=== PATIENT | male | born 1955 | race Caucasian/White ===

== ENCOUNTER → 2017-04-22 | Outpatient (CLI) | payer MEDICARE ==
[~2017-04-22] MED LIST: CLEOCIN HCL300 MG PO; GLUCOPHAGE 500500 MG PO; IBUPROFEN800 MG PO; LASIX 40 MG TAB40 MG PO; METOPROLOL SUCC50 MG PO; PLAVIX 75 MG TA75 MG PO; PROZAC 20 MG CA20 MG PO; ZANTAC 150 MG150 MG PO; ZESTRIL5 MG PO
== END ==
LOC: HEART 5 07:08
DX: I25.10 Atherosclerotic heart disease of native coronary artery without angina pectoris (principal); I50.9 Heart failure, unspecified
CPT/HCPCS: 78452; A9502; J2785

== ENCOUNTER 2020-11-12 18:40 | Emergency (ER) | payer MEDICARE, OTHER ==
[~2020-11-12 18:40] MED LIST changes: +HYDROCODON-ACE1 EAC4 PO; +NORCO 5-325 TA1 EACH PO; +VIBRAMYCIN100 MG PO
[2020-11-12 19:57] LABS: HEMOGLOBIN 14.1 gm/dl (14.0-17.5); RED BLOOD COUNT 4.78 M/UL (4.20-5.50); WHITE BLOOD COUNT 5.4 K/UL (4.5-11.0)
[2020-11-12 20:17] LABS: BUN/CREATININE RATIO 12 (0-10)
[2020-11-12] MEDS ORDERED: DECADRON6 MG PO (21:58)
[2020-11-12] MEDS ORDERED: DOXYCYCLINE HY100 MG PO (21:58)
== END 2020-11-12 22:25 | disposition home or self-care (01) ==
LOC: ER1 18:40
PROVIDERS: Family Medicine
DX: U07.1 COVID-19 (principal); E11.9 Type 2 diabetes mellitus without complications; F17.220 Nicotine dependence, chewing tobacco, uncomplicated; Z95.1 Presence of aortocoronary bypass graft; Z88.0 Allergy status to penicillin; Z88.1 Allergy status to other antibiotic agents; Z88.6 Allergy status to analgesic agent; Z86.79 Personal history of other diseases of the circulatory system
CPT/HCPCS: 71045; 80053; 82550; 82553; 83615; 83874; 84484; 85025; 86140; 93005; 99285; U0002

== ENCOUNTER → 2021-01-29 | Outpatient (CLI) | payer MEDICARE ==
[~2021-01-29] MED LIST changes: +CRESTOR20 MG PO; +DECADRON6 MG PO; +DOXYCYCLINE HY100 MG PO; +ECOTRIN81 MG PO; +FUROSEMIDE20 MG PO; +NITROGLYCERIN0.4 MG SL; +PROAIR HFA8.5 GM INH; +RANOLAZINE ER500 MG PO; +TOPROL XL50 MG PO
== END ==
LOC: HEART 5 01-23 07:30
DX: I25.10 Atherosclerotic heart disease of native coronary artery without angina pectoris (principal); I47.2 Ventricular tachycardia; R94.39 Abnormal result of other cardiovascular function study
CPT/HCPCS: 78452; A9502; J2785

== ENCOUNTER → 2021-02-05 | Outpatient (CLI) | payer MEDICARE ==
[2021-02-05 11:30] LABS: HEMOGLOBIN 14.1 gm/dl (14.0-17.5); RED BLOOD COUNT 4.84 M/UL (4.20-5.50); WHITE BLOOD COUNT 7.2 K/UL (4.5-11.0)
[2021-02-05 11:45] LABS: BUN/CREATININE RATIO 11 (0-10)
== END ==
LOC: LAB 10:12
PROVIDERS: Internal Medicine Cardiovascular Disease
DX: R94.39 Abnormal result of other cardiovascular function study (principal); I25.118 Atherosclerotic heart disease of native coronary artery with other forms of angina pectoris; I10 Essential (primary) hypertension; I47.2 Ventricular tachycardia; R06.02 Shortness of breath; Z20.822 Contact with and (suspected) exposure to COVID-19
CPT/HCPCS: 71046; 80048; 85025; U0003

== ENCOUNTER 2021-02-07 06:25 | Outpatient (CLI) | payer MEDICARE ==
[~2021-02-07] VITALS: Ht 182.9 cm; Wt 128.9 kg
[~2021-02-07 06:25] MED LIST changes: -CRESTOR20 MG PO; -ECOTRIN81 MG PO; -FUROSEMIDE20 MG PO; -NITROGLYCERIN0.4 MG SL; -PROAIR HFA8.5 GM INH; -RANOLAZINE ER500 MG PO; -TOPROL XL50 MG PO
[2021-02-07] MEDS ORDERED: RANOLAZINE ER500 MG PO (07:24)
[2021-02-07] MEDS ORDERED: FUROSEMIDE20 MG PO (07:25)
[2021-02-07] MEDS ORDERED: GLUCOPHAGE 500500 MG PO (07:25)
[2021-02-07] MEDS ORDERED: ECOTRIN81 MG PO (07:26)
[2021-02-07] MEDS ORDERED: PLAVIX 75 MG TA75 MG PO (07:26)
[2021-02-07] MEDS ORDERED: CRESTOR20 MG PO (07:26)
[2021-02-07] MEDS ORDERED: NITROGLYCERIN0.4 MG SL (07:29)
[2021-02-07] MEDS ORDERED: PROAIR HFA8.5 GM INH (07:30)
[2021-02-07] MEDS ORDERED: TOPROL XL50 MG PO (07:31)
[2021-02-08 03:02] LABS: HEMOGLOBIN 13.2 gm/dl (14.0-17.5); RED BLOOD COUNT 4.52 M/UL (4.20-5.50); WHITE BLOOD COUNT 5.7 K/UL (4.5-11.0)
[2021-02-08 03:39] LABS: BUN/CREATININE RATIO 13 (0-10)
== END 2021-02-08 15:50 | disposition home or self-care (01) ==
LOC: CATH 06:25 → PROG CARE 06:25 → CATH 08:00 → PROG CARE 13:04 → CATH 02-08 15:50
PROVIDERS: Internal Medicine Cardiovascular Disease
DX: I25.119 Atherosclerotic heart disease of native coronary artery with unspecified angina pectoris (principal); I11.0 Hypertensive heart disease with heart failure; I50.9 Heart failure, unspecified; M19.90 Unspecified osteoarthritis, unspecified site; E78.5 Hyperlipidemia, unspecified; E11.9 Type 2 diabetes mellitus without complications; E66.01 Morbid (severe) obesity due to excess calories; Z87.891 Personal history of nicotine dependence; Z95.1 Presence of aortocoronary bypass graft; Z88.0 Allergy status to penicillin; Z88.8 Allergy status to other drugs, medicaments and biological substances; Z79.82 Long term (current) use of aspirin; Z79.84 Long term (current) use of oral hypoglycemic drugs; Z82.49 Family history of ischemic heart disease and other diseases of the circulatory system
CPT/HCPCS: 36415; 80048; 82962; 85025; 85347; 93005; 94760; 99152; 99153; C1725; C1760; C1769; C1874; C1887; C9600; J1644; J2250; J3010; J7030; Q9967

== ENCOUNTER → 2021-05-16 | Outpatient (CLI) | payer MEDICARE ==
[~2021-05-16] MED LIST changes: +CRESTOR20 MG PO; +ECOTRIN81 MG PO; +FUROSEMIDE20 MG PO; +NITROGLYCERIN0.4 MG SL; +PROAIR HFA8.5 GM INH; +RANOLAZINE ER500 MG PO; +TOPROL XL50 MG PO
== END ==
LOC: KOH-I 14:45
DX: M54.5 Low back pain (principal)
CPT/HCPCS: 72100

== ENCOUNTER → 2022-01-07 | Outpatient (CLI) | payer MEDICARE ==
[2022-01-07 08:16] LABS: BUN/CREATININE RATIO 12 (0-10)
== END ==
LOC: LAB 06:33
PROVIDERS: Physician Assistant
DX: I25.119 Atherosclerotic heart disease of native coronary artery with unspecified angina pectoris (principal); E78.5 Hyperlipidemia, unspecified; I25.5 Ischemic cardiomyopathy; I47.2 Ventricular tachycardia; I49.3 Ventricular premature depolarization; I11.0 Hypertensive heart disease with heart failure; I50.22 Chronic systolic (congestive) heart failure; R06.02 Shortness of breath; Z86.718 Personal history of other venous thrombosis and embolism
CPT/HCPCS: 36415; 80053; 80061; 83735; 84439; 84443; 84481; 85379

== ENCOUNTER → 2022-01-10 | Outpatient (CLI) | payer MEDICARE | LOC: CT 15:26 | DX: R79.89 Other specified abnormal findings of blood chemistry (principal); R00.0 Tachycardia, unspecified; Z86.718 Personal history of other venous thrombosis and embolism; R59.0 Localized enlarged lymph nodes | CPT/HCPCS: Q9967 ==

== ENCOUNTER → 2022-01-15 | Outpatient (CLI) | payer MEDICARE | LOC: EXRD 13:00 | DX: R79.89 Other specified abnormal findings of blood chemistry (principal); Z86.718 Personal history of other venous thrombosis and embolism; R60.0 Localized edema | CPT/HCPCS: 93970 ==

== ENCOUNTER → 2022-01-29 | Outpatient (CLI) | payer MEDICARE | LOC: HEART 5 14:25 | DX: R06.02 Shortness of breath (principal); I70.0 Atherosclerosis of aorta; Z95.0 Presence of cardiac pacemaker; I51.7 Cardiomegaly; I51.89 Other ill-defined heart diseases | CPT/HCPCS: 93306 ==

== ENCOUNTER → 2022-04-11 | Outpatient (CLI) | payer MEDICARE | LOC: EXRD 10:03 | DX: R09.89 Other specified symptoms and signs involving the circulatory and respiratory systems (principal) | CPT/HCPCS: 93880 ==